=== PATIENT | female | born 1995 | race Caucasian/White ===

== ENCOUNTER 2017-08-19 16:57 | Emergency (ER) | payer OTHER ==
[~2017-08-19] VITALS: Ht 160 cm; Wt 75.3 kg
[2017-08-19 17:06] VITALS: BP 140/84; Ht 160 cm; Wt 75.3 kg
== END 2017-08-19 18:10 | disposition home or self-care (01) ==
LOC: ED 16:57
DX: O9A.311 Physical abuse complicating pregnancy, first trimester (principal); Z3A.08 8 weeks gestation of pregnancy; M79.1 Myalgia